=== PATIENT | female | born 1955 ===

== ENCOUNTER 2022-07-24 12:28 | Outpatient (CLI) | payer OTHER ==
[~2022-07-24 12:28] MED LIST: Iopamidol 370 76% 100 ML VIAL ONE
== END 2022-07-24 12:29 | disposition home or self-care (01) ==
LOC: CT 12:28
PROVIDERS: ATTEND Physician Assistant Medical
DX: K59.00 Constipation, unspecified (principal); R10.30 Lower abdominal pain, unspecified; R19.5 Other fecal abnormalities; N81.10 Cystocele, unspecified; R91.8 Other nonspecific abnormal finding of lung field; Z86.010 Personal history of colon polyps; Z80.0 Family history of malignant neoplasm of digestive organs
CPT/HCPCS: 74177; 82565